=== PATIENT | male | born 1960 | race Caucasian/White ===

== ENCOUNTER 2022-12-03 09:11 | Emergency (ER) | payer BC ==
[2022-12-03] MEDS ORDERED: Sodium Chloride 0.9% 10 ML Syringe FLUSH PRN (09:45)
[2022-12-03 10:27] LABS: BLOOD UREA NITROGEN,BUN 33 mg/dL (7-18); BUN/CREATININE RATIO 47.1 (9-20); CALCIUM 9.3 mg/dL (8.6-10.2); CARBON DIOXIDE,CO2 37 mmol/L (21-32); CHLORIDE,CL 97 mmol/L (100-110); CREATININE 0.7 mg/dL (0.70-1.30); ESTIMATED GFR 105 mL/min (>60); GLUCOSE RANDOM 96 mg/dL (80-116); SODIUM,NA 135 mmol/L (135-145)
[2022-12-03 10:28] LABS: HEMATOCRIT 28.7 % (38.3-50.1); HEMOGLOBIN 9.6 g/dL (12.9-17.7); MEAN CORPUSCULAR HEMOGLOBIN 30.7 pg (27.0-33.3); MEAN CORPUSCULAR HGB CONC 33.3 g/dL (28.7-35.3); RED BLOOD CELL COUNT 3.12 x10(6)uL (3.90-5.90); RED CELL DISTRIBUTION WIDTH 17.1 % (12.4-15.0); WHITE BLOOD CELL COUNT,WBC 22.1 x10-3/uL (3.2-10.1)
[2022-12-03 10:33] LABS: A/G RATIO 0.5; ALANINE AMINOTRANSFERASE,ALT 18 U/L (12-36); ALBUMIN 2.2 g/dL (3.2-4.6); ALKALINE PHOSPHATASE 90 IU/L (56-112); ASPARTATE AMNIOTRANSFERASE,AST 33 IU/L (5-25); BILIRUBIN TOTAL 0.6 mg/dL (0.1-1.3); PROTEIN TOTAL,TP 6.6 g/dL (6.0-8.0)
[2022-12-03] MEDS ORDERED: Iopamidol 755 Mg/ML 100 ML Bottle IV ONE (10:33)
[2022-12-03 10:39] LABS: C-REACTIVE PROTEIN 18.78 mg/dL (<0.33)
[2022-12-03] MEDS ORDERED: Acetaminophen/oxyCODONE 325-5 MG Tab PO PRN (10:44)
[2022-12-03] MEDS ORDERED: VANCOmycin 1 GM/200 ML 1 GM in Premix Bag 1 BAG IV ONE (10:57)
[2022-12-03] MEDS ORDERED: Piperacillin/Tazobactam 4.5 GM in Sodium Chloride 0.9% 100 ML IV SCH (11:00)
[2022-12-03 11:11] LABS: BILIRUBIN,URINE NEGATIVE (NEGATIVE); GLUCOSE,URINE NORMAL (NORMAL); KETONES,URINE NEGATIVE (NEGATIVE); LEUKOCYTE ESTERASE,URINE NEGATIVE (NEGATIVE); NITRITE,URINE NEGATIVE (NEGATIVE); OCCULT BLOOD,URINE NEGATIVE (NEGATIVE); PROTEIN,URINE NEGATIVE (NEGATIVE); UROBILINOGEN,URINE NORMAL (NEGATIVE)
[2022-12-03 11:16] LABS: BASE EXCESS VENOUS,POC 8 mmol/L (-2 - 3+); PCO2 VENOUS,POC 59 mmHg (41-51); PH VENOUS,POC 7.38 pH Units (7.32-7.43)
[2022-12-03 11:17] LABS: APPEARANCE,URINE CLEAR (CLEAR); BACTERIA,URINE FEW (NS); COLOR,URINE YELLOW (YELLOW); SQUAMOUS EPITHELIAL CELLS,UR OCCASIONAL (NS,R,O); WBC,URINE 0-5 (0-5)
== END 2022-12-03 11:48 | disposition other institution (70) ==
LOC: FB.ED 09:11
DX: J86.9 Pyothorax without fistula (principal); R09.02 Hypoxemia; Z86.718 Personal history of other venous thrombosis and embolism
CPT/HCPCS: 36415; 71045; 71260; 80053; 81001; 83605; 83880; 84484; 85027; 86140; 87040; 93005; 96365; 99285; A9270; J2543; J3490; Q9967; 93010; 99284